=== PATIENT | male | born 1975 | race American Indian/Alaskan Native ===

== ENCOUNTER 2018-02-07 08:48 | Day surgery (SDC) | payer MEDICARE, MEDICAID ==
[2017-02-20 19:48] VITALS: BMI 22.9
[2018-02-07] MEDS ORDERED: HYDROmorphone 0.5 mg/0.5 ml ISec IVP PRN (11:18)
[2018-02-07] MEDS ORDERED: cefTRIAXone IV 1 gm in Dextros 50 ML IVPB ONE (12:28)
[2018-02-07] MEDS ORDERED: Iohexol 240 (50 ml) ONE (12:28)
[2018-02-07] MEDS ORDERED: Iohexol 240 200 ML ONE (12:43)
[2018-02-07] MEDS ORDERED: Midazolam 2 MG/2 ML VIAL ONE ×2 (12:46→12:47)
[2018-02-07] MEDS ORDERED: Propofol 10 mg/ml Inj (20 ML) ONE (12:47)
[2018-02-07] MEDS ORDERED: Oxycodone/Acetaminophen 5/325 mg Tab PO PRN (13:14)
--- NOTE | 2018-02-07 13:22 | RAD ---
PROCEDURE: Intraoperative Fluoroscopy. HISTORY: URINARY RETENTION FINDINGS: Fluoroscopic assistance was provided. 3.5 seconds fluoroscopy time utilized during this procedure. . Radiation dose = 0.28840 mGy - cm. Please refer to the operative report from PHOENIX Glasgow, , MD AKIKO.
--- NOTE | 2018-02-07 14:42 | RAD ---
HISTORY: URINARY RETENTION COMPARISON: No prior. FINDINGS: BOWEL: Normal. No obstruction. No free air. BONES: Normal. OTHER FINDINGS: None. IMPRESSION: No active disease.
[2018-02-07 15:14] VITALS: O2SAT 96
[2018-02-07 17:37] VITALS: BP 116/76; PULSE 86; RESP 20; TEMP 97.7
--- NOTE | 2018-02-26 06:35 | OP ---
PROCEDURE DATE: 02/07/2018 PREOPERATIVE DIAGNOSES: Voiding dysfunction, urinary retention, neurogenic bladder, hypospadias, and use of a Fofana catheter. POSTOPERATIVE DIAGNOSES: Voiding dysfunction, urinary retention, neurogenic bladder, hypospadias, and use of a Fofana catheter. PROCEDURE: Cystoscopy, removal of an old Fofana catheter, insertion of a new Fofana catheter, and a cystogram. SURGEON: Carlo Meza MD COMPLICATIONS: There were no complications. ESTIMATED BLOOD LOSS: Less than 10 mL. INDICATIONS: See history and physical for further details. This is a pleasant gentleman who is here for above procedures. FINDINGS: 1. Hypospadias and erosion of the urethra. 2. Some changes in the prostate . 3. within normal limits. 4. Bladder debris. There were no real definite bladder lesions. There were no complications. Films of cystogram submitted for x-ray reading for appropriate diagnostic investigation. I may be considering an insertion of a cystoscopy tube. I did discuss with him trauma, reconstruction surgeon. For now, we are doing the . DESCRIPTION OF PROCEDURE: After obtaining informed consent, the patient was placed on the table. Routine monitor was placed. Time-out was called to confirm the patient and positioning. We removed the old Fofana catheter. With some difficulty we were able to use a flexible cystoscope via urethra. . Bladder was carefully inspected. No major abnormalities detected. A Fofana catheter was inserted via urethra. . The patient tolerated the procedure well without complication. Carlo Meza MD
--- NOTE | 2018-02-26 06:36 | HP ---
REASON FOR ADMISSION: For change of Fofana catheter. HISTORY OF PRESENT ILLNESS: Mr. Yanez is a very pleasant gentleman who lives in a halfway in his usual state of health. He has underlying multiple . His primary care physician has followed him 6 weeks ago and from a urologic standpoint, has been following him. The plan at this time is to undergo an indwelling Fofana catheter. Of late, though, for various reasons including catheter care reason, the patient has now has developed . We initially discussed with the patient the idea of cystoscopy tube, which I am still recommending, which I have to discuss with the patient's family, but now he is willing to discuss a way out. I explained to the patient that . I still recommend that he consider the possibility for a cystostomy tube itself. Meanwhile, the insertion of Fofana catheter will benefit and we discussed those options. Some of the issues are insurance-related and some other that are beyond the patient's control. . Meanwhile, today, we are going to change the Fofana catheter. We assessed the possibility for a cystostomy tube evaluating. PAST MEDICAL AND SURGICAL HISTORY: Listed in the chart. No other major differences in them and they are as they are listed above. MEDICATIONS: See chart. ALLERGIES: See chart. . PHYSICAL EXAMINATION: GENERAL: Well-developed male in no apparent distress. VITAL SIGNS: Within normal limits. ABDOMEN: Mobile, soft. : He has a normal ____ RECTAL: Deferred for now. . DIAGNOSES: Neurogenic bladder, voiding dysfunction, urinary retention. PLAN: The plan is as follows: For now, we are going to change the Fofana catheter. We are going to perform a cystogram and cystoscopy and then further plans will follow depending on what we find and then we will discuss the options . My recommendation is consider cystostomy tube insertion and then consider . Carlo Meza MD [facility] # [id number]
== END 2018-02-07 17:28 | disposition home or self-care (01) ==
LOC: C.SDS 08:48
PROVIDERS: ATTEND Urology
DX: R33.9 Retention of urine, unspecified (principal); R31.29 Other microscopic hematuria; Q54.9 Hypospadias, unspecified; N31.9 Neuromuscular dysfunction of bladder, unspecified
CPT/HCPCS: 52000; 74018; 82948; J0696; Q9966

== ENCOUNTER 2018-04-16 13:43 | Day surgery (SDC) | payer MEDICARE, MEDICAID ==
[2017-02-20 19:48] VITALS: BMI 22.9
[2018-04-16 14:47] VITALS: O2SAT 97
[2018-04-16] MEDS ORDERED: Propofol 10 mg/ml Inj (20 ML) ONE (16:12)
[2018-04-16] MEDS ORDERED: Midazolam 2 MG/2 ML VIAL ONE (16:17)
[2018-04-16] MEDS ORDERED: Iohexol 240 (50 ml) ONE (16:23)
[2018-04-16] MEDS ORDERED: cefTRIAXone IV 1 gm in Dextros 50 ML IVPB ONE (16:23)
[2018-04-16] MEDS ORDERED: Lidocaine/Epinephrine 1% 1:100000 10 ML IJ ONE (16:26)
[2018-04-16] MEDS ORDERED: Oxycodone/Acetaminophen 5/325 mg Tab PO PRN (16:59)
--- NOTE | 2018-04-16 17:56 | RAD ---
Date of service: 04/16/2018 PROCEDURE: Intraoperative Fluoroscopy. HISTORY: URINARY INCONTINENCE FINDINGS: Fluoroscopic assistance was provided for cystography. Please refer to the operative report from PHOENIX Glasgow , MD AKIKO. Total fluoroscopic time (continuous mode) utilized during the procedure (seconds) 2.5.
[2018-04-16 18:13] VITALS: BP 125/78; PULSE 74; RESP 18; TEMP 97
--- NOTE | 2018-04-17 17:16 | HP ---
REASON FOR ADMISSION: For insertion of suprapubic catheter. HISTORY OF PRESENT ILLNESS: A very pleasant gentleman who is 42-year-old, has multiple medical issues. He lives in a half-way. He is actually . From urology standpoint though he has indwelling Fofana catheter, that is now developing a hypospadia secondary to pulling out Fofana catheter. Today, we are inserting a suprapubic tube. I am also going to try to help him arrange for an appointment with urethral reconstruction expert. Discussed to follow, but today we just wanted to insert a suprapubic catheter. The patient is also looking to have intercourse and sexual activity and he reports that Fofana catheter is obviously limited. The past medical and surgical history is listed on the chart, otherwise unremarkable. MEDICATION: See the chart. SOCIAL HISTORY: Eventually, he is going to . REVIEW OF SYSTEMS: Listed above. PHYSICAL EXAMINATION: GENERAL: Well-nourished male in no apparent distress. VITAL SIGNS: Within normal limits. GENITOURINARY: Well-developed normal male phallus, but he now has a development of hypospadias in his urethra. There were no testicular masses. DIAGNOSES: Urinary retention, voiding dysfunction, multiple medical problems, and neurologic disease. See the chart for further details. From urology standpoint, he has a hypospadias developing. PLAN: The plan is as follows. Today we are going to insert a suprapubic catheter, antibiotic prophylaxis will be provided and then further plans will follow. Risks and benefits were discussed with the patient at length and we will plan to proceed. Carlo Meza MD
--- NOTE | 2018-04-18 07:01 | OP ---
PROCEDURE DATE: 04/16/2018 PREOPERATIVE DIAGNOSES: Urinary retention, voiding dysfunction, and neurologic bladder. POSTOPERATIVE DIAGNOSES: Urinary retention, voiding dysfunction, and neurologic bladder. PROCEDURE: Insertion of a cystostomy tube and a cystogram. SURGEON: Antonio Paul. DRAINS: A suprapubic catheter and a Fofana catheter. COMPLICATIONS: No complications. BLOOD LOSS: 10 mL. INDICATIONS FOR PROCEDURE: See the history and physical for further details. A very pleasant gentleman, who is here for the above procedure. We have discussed risk, benefits, and alternatives. After obtaining informed consent, the patient was placed on the table. Routine monitor was placed. Time-out was called to confirm the confirm the patient and positioning. The hypospadias is noted. We pulled out the bladder. After anesthesia was started, time out was called, antibiotics prophylaxis provided. Previously, the patient has undergone cystoscopy evaluation. Today, we inflated the bladder via the Fofana catheter via the urethra without difficulty . We palpated the bladder above the suprapubic bone. About two to three fingerbreadths, we palpated the bladder. We also did an x-ray and on fluoroscopic imaging, the procedure was done as well. We used a spinal needle as a finder. Once we confirmed that it is the bladder we measured the length. We inserted this upon cystoscopy tube. Once we completely re-drain the bladder and we confirmed our positioning. We performed a cystoscopy. The patient tolerated the procedure without complication. Carlo Meza MD
== END 2018-04-16 18:30 | disposition home or self-care (01) ==
LOC: C.SDS 13:43
PROVIDERS: ATTEND Urology
DX: N31.9 Neuromuscular dysfunction of bladder, unspecified (principal); R33.9 Retention of urine, unspecified; R32 Unspecified urinary incontinence; R39.89 Other symptoms and signs involving the genitourinary system; Q54.9 Hypospadias, unspecified
CPT/HCPCS: 51102; C2627; J0696; J2250; J2704; J3010; Q9966